=== PATIENT | female | born 1990 | race Caucasian/White ===

== ENCOUNTER 2017-06-28 01:32 | Emergency (ER) | payer MEDICAID ==
[~2017-06-28] VITALS: Ht 162.6 cm; Wt 92.5 kg
[2017-06-28 01:38] VITALS: Ht 162.6 cm; Wt 92.5 kg
[2017-06-28 02:56] VITALS: BP 125/86
== END 2017-06-28 02:56 | disposition home or self-care (01) ==
LOC: ED 01:32
DX: L30.9 Dermatitis, unspecified (principal)
CPT/HCPCS: J7512

== ENCOUNTER 2017-08-02 23:03 | Emergency (ER) | payer MEDICAID ==
[~2017-08-02] VITALS: Ht 162.6 cm; Wt 93.4 kg
[2017-08-02 23:11] VITALS: Ht 162.6 cm; Wt 93.4 kg
[2017-08-03 00:17] VITALS: BP 127/86
== END 2017-08-03 00:17 | disposition home or self-care (01) ==
LOC: ED 23:03
DX: L30.9 Dermatitis, unspecified (principal)

== ENCOUNTER 2018-10-13 15:16 | Emergency (ER) | payer MEDICAID ==
[~2018-10-13] VITALS: Ht 162.6 cm; Wt 92.5 kg
[2018-10-13 15:22] VITALS: Ht 162.6 cm; Wt 92.5 kg
[2018-10-13 16:33] VITALS: BP 126/89
[2018-10-13 16:58] LABS: BASOPHIL % 0.4 % (0-2); PLATELET COUNT 300 x10^3mcL (130-400); RED CELL DISTRIBUTION WIDTH 12.6 % (11.5-14.5)
[2018-10-13 17:03] LABS: CALCIUM 8.6 mg/dL (8.5-10.1); CARBON DIOXIDE 23.7 mmol/L (21-32); CHLORIDE SERUM 101 mmol/L (98-107); CREATININE SERUM 0.7 mg/dL (0.6-1.0); GFR1 > 60 mL/min; GLUCOSE SERUM 78 mg/dL (74-106); POTASSIUM SERUM 3.5 mmol/L (3.5-5.1); SODIUM SERUM 136 mmol/L (136-145)
[2018-10-13 17:18] LABS: FREE T4 1.11 ng/dL (0.76-1.46)
[2018-10-13 17:19] LABS: FREE THYROXINE INDEX 3.5 ug/dL (1.4-4.5); T4(THYROXINE) 13.4 ug/dL (4.7-13.3)
[2018-10-13 17:32] LABS: T3 TOTAL 1.9 ng/mL
== END 2018-10-13 18:48 | disposition home or self-care (01) ==
LOC: ED 15:16
PROVIDERS: Emergency Medicine
DX: O26.891 Other specified pregnancy related conditions, first trimester (principal); L63.9 Alopecia areata, unspecified; R10.9 Unspecified abdominal pain; Z3A.10 10 weeks gestation of pregnancy
CPT/HCPCS: 36415; 84439; Q0092

== ENCOUNTER 2018-12-25 12:03 | Emergency (ER) | payer MEDICAID ==
[~2018-12-25] VITALS: Ht 162.6 cm; Wt 91.2 kg
[2018-12-25 12:07] VITALS: BP 133/84; Ht 162.6 cm; Wt 91.2 kg
== END 2018-12-25 14:00 | disposition left against medical advice (07) ==
LOC: ED 12:03
DX: Z53.21 Procedure and treatment not carried out due to patient leaving prior to being seen by health care provider (principal)

== ENCOUNTER 2019-01-04 12:11 | Emergency (ER) | payer MEDICAID ==
[~2019-01-04] VITALS: Ht 162.6 cm; Wt 93.0 kg
[2019-01-04 12:23] VITALS: BP 111/84; Ht 162.6 cm; Wt 93.0 kg
== END 2019-01-04 15:20 | disposition home or self-care (01) ==
LOC: ED 12:11
DX: O26.891 Other specified pregnancy related conditions, first trimester (principal); R21 Rash and other nonspecific skin eruption; Z3A.10 10 weeks gestation of pregnancy